=== PATIENT | female | born 1975 ===

== ENCOUNTER 2016-11-11 10:55 | Emergency (ER) | payer OTHER ==
[2016-11-11 11:32] VITALS: BMI 34.1
[2016-11-11] MEDS ORDERED: Albuterol-Ipratrop 3 mg / 0.5 (3 ml) UD ONE ×4 (11:41→13:31)
[2016-11-11] MEDS: Albuterol-Ipratrop 3 mg / 0.5 (3 ml) UD INH SCH (12:20)
--- NOTE | 2016-11-11 13:06 | C.PDOC ---
History Of Present Illness 41 y/o female presents to ED with complaints of productive cough, SOB and chest pain that increases with movement for x1 week. Symptoms began as nasal allergies and have worsen with time. Patient states she used son's nebulizer but no relief was noted. Patient denies N/V/D, fever or chills. No other complaints at this time. Time Seen by Provider: 11/11/16 12:09 Chief Complaint (Nursing): Shortness Of Breath History Per: Patient Onset/Duration Of Symptoms: Days Current Symptoms Are (Timing): Still Present Quality: Tightness Past Medical History Reviewed: Historical Data, Nursing Documentation, Vital Signs Vital Signs: Last Vital Signs Temp 98.7 F 11/11/16 14:06 Pulse 86 11/11/16 14:06 Resp 17 11/11/16 14:06 BP 110/74 11/11/16 14:06 Pulse Ox 94 L 11/11/16 14:29 - Medical History PMH: Bronchitis Family History: States: No Known Family Hx - Social History Hx Alcohol Use: Yes Hx Substance Use: No Review Of Systems Except As Marked, All Systems Reviewed And Found Negative. Constitutional: Negative for: Fever, Chills Cardiovascular: Positive for: Chest Pain Respiratory: Positive for: Cough, Shortness of Breath Gastrointestinal: Negative for: Nausea, Vomiting, Diarrhea Genitourinary: Negative for: Dysuria Skin: Negative for: Rash Neurological: Negative for: Weakness, Numbness Physical Exam - Physical Exam Appears: Non-toxic, No Acute Distress Skin: Normal Color, Warm, No Rash Head: Atraumatic, Normacephalic Eye(s): bilateral: Normal Inspection, PERRL Oral Mucosa: Moist Neck: Normal ROM, Supple Chest: Symmetrical Cardiovascular: Rhythm Regular, No Friction Rub, No Murmur Respiratory: No Rales, Rhonchi (Scattered Rhonchi ), Wheezing Gastrointestinal/Abdominal: Soft, No Tenderness, No Guarding, No Rebound Back: Normal Inspection, No CVA Tenderness Extremity: Normal ROM Neurological/Psych: Oriented x3, Normal Speech, Normal Cognition, Normal Motor Gait: Steady ED Course And Treatment - Laboratory Results Result Diagrams: 11/11/16 13:38 11/11/16 13:38 O2 Sat by Pulse Oximetry: 94 (Room air ) Pulse Ox Interpretation: Normal - Radiology CXR: Interpreted by Me CXR Interpretation: Yes: No Acute Disease. No: Infiltrates Medical Decision Making Medical Decision Making: On re-exam, the patient reports improvement of symptoms. Ambulatory in the ED with steady gait. Lungs are CTA, heart is RRR, abdomen is soft, non-tender and patient is tolerating PO well. Follow up with the medical doctor within 1-2 days , Return if worsened Disposition - Disposition Referrals: [facility] [Outside] Disposition: HOME/ ROUTINE Disposition Time: 14:25 Condition: GOOD Additional Instructions: Follow up with the medical doctor within 1-2 days without fail. Return if worsened. Prescriptions: Albuterol HFA [Ventolin HFA 90 mcg/actuation (8 g)] 1 puff IH QID PRN #1 inhaler PRN Reason: Shortness Of Breath Azithromycin [Zithromax] 250 mg PO DAILY #6 tab predniSONE [Prednisone] 20 mg PO BID #10 tab Promethazine/Phenyleph/Codeine [Pdtybchmdcqg-[id number]-Luvywoi Syrup] 5 ml PO TID PRN # 75 ml PRN Reason: Cough Spacer, Inhalation [Aerochamber] 1 inh IH QID #1 dev Instructions: Acute Bronchitis (ED) - Clinical Impression Clinical Impression: Acute bronchitis - PA / OUTPATIENT SURGERY RN / Resident Statement MD/DO has reviewed & agrees with the documentation as recorded. - Scribe Statement The provider has reviewed the documentation as recorded by the Duran Jerome All medical record entries made by the Duran were at my direction and personally dictated by me. I have reviewed the chart and agree that the record accurately reflects my personal performance of the history, physical exam, medical decision making, and the department course for this patient. I have also personally directed, reviewed, and agree with the discharge instructions and disposition.
[2016-11-11] MEDS ORDERED: MethylPREDNISolone 40 mg Vial IVP STA (13:13)
[2016-11-11] MEDS ORDERED: MethylPREDNISolone 40 mg Vial ONE (13:32)
[2016-11-11] MEDS: Albuterol-Ipratrop 3 mg / 0.5 (3 ml) UD IH SCH (13:35)
[2016-11-11 13:46] LABS: BASO # 0.2 K/uL (0.0-0.2); BASO % 1.5 % (0.0-2.0); EOS # 0.8 K/uL (0.0-0.7); EOS % 6.1 % (0.0-4.0); HEMATOCRIT 36.2 % (34.0-47.0); LYMPH # 2.3 K/uL (1.0-4.3); LYMPH % 17.9 % (20.0-40.0); MEAN CELL VOLUME 82.2 fL (81.0-99.0); MEAN CORPUSCULAR HEMOGLOBIN 26.6 pg (27.0-31.0); MEAN CORPUSCULAR HGB CONC 32.3 g/dL (33.0-37.0); MEAN PLATELET VOLUME 7.2 fL (7.2-11.7); MONO # 0.8 K/uL (0.0-0.8); MONO % 6.2 % (0.0-10.0); RED CELL DISTRIBUTION WIDTH 14.7 % (11.5-14.5); WHITE BLOOD COUNT 12.6 K/uL (4.8-10.8)
[2016-11-11 13:52] LABS: CHLORIDE 101 mmol/L (98-107); SODIUM 142 mmol/L (132-148)
[2016-11-11 13:53] LABS: POTASSIUM 3.7 mmol/L (3.6-5.2)
[2016-11-11 13:55] LABS: ALB/GLOB RATIO 1.5 (1.0-2.1); ALKALINE PHOSPHATASE 66 U/L (38-126); ALT/SGPT 29 U/L (9-52); AST/SGOT 31 U/L (14-36); BILIRUBIN,TOTAL 0.5 mg/dL (0.2-1.3); BLOOD UREA NITROGEN 12 mg/dL (7-17); CARBON DIOXIDE 27 mmol/L (22-30); GFR AFRICAN-AMERICAN > 60; GLUCOSE,RANDOM 90 mg/dL (65-105); TOTAL PROTEIN 8.6 g/dL (6.3-8.3)
[2016-11-11 13:56] LABS: CALCIUM 9.3 mg/dl (8.6-10.4)
[2016-11-11 14:08] VITALS: BP 110/74; PULSE 86; RESP 17; TEMP 98.7
[2016-11-11] MEDS ORDERED: guaiFENesin 100 mg/5 ml Syrup UD PO STA (14:09)
[2016-11-11] MEDS ORDERED: guaiFENesin 200 mg/10 ml Syrup UD ONE (14:14)
[2016-11-11 14:29] VITALS: O2SAT 94
--- NOTE | 2016-11-11 14:46 | RAD ---
HISTORY: SOB COMPARISON: None available. TECHNIQUE: Chest PA and lateral FINDINGS: Examination limited by habitus. LUNGS: No focal consolidation. Please note that chest x-ray has limited sensitivity for the detection of pulmonary masses. PLEURA: No significant pleural effusion identified. No definite pneumothorax . CARDIOVASCULAR: The cardiomediastinal silhouette appears within normal limits of size. OSSEOUS STRUCTURES: Mild degenerative changes. VISUALIZED UPPER ABDOMEN: Unremarkable. OTHER FINDINGS: None. IMPRESSION: No focal consolidation, significant pleural effusion, or definite pneumothorax identified.
== END 2016-11-11 14:55 | disposition home or self-care (01) ==
LOC: C.ER 10:55
DX: J20.9 Acute bronchitis, unspecified (principal)
CPT/HCPCS: 71020; 80053; 85025; 94640; 96374; 99285; J2920

== ENCOUNTER 2017-06-20 04:02 | Emergency (ER) | payer OTHER ==
[2017-06-20 04:04] VITALS: BMI 34.1
[2017-06-20] MEDS ORDERED: Sodium Chloride 0.9% 1,000 ML ONE (04:54)
[2017-06-20] MEDS ORDERED: Sodium Chloride 0.9% 1,000 ML IV STA (04:55)
[2017-06-20 05:15] LABS: BASO # 0.1 K/uL (0.0-0.2); BASO % 0.7 % (0.0-2.0); EOS # 0.6 K/uL (0.0-0.7); EOS % 8.6 % (0.0-4.0); LYMPH # 0.8 K/uL (1.0-4.3); LYMPH % 11.5 % (20.0-40.0); MEAN CELL VOLUME 75.3 fL (81.0-99.0); MEAN CORPUSCULAR HEMOGLOBIN 24.4 pg (27.0-31.0); MEAN CORPUSCULAR HGB CONC 32.4 g/dL (33.0-37.0); MONO # 0.5 K/uL (0.0-0.8); MONO % 6.8 % (0.0-10.0); NEUT % 72.4 % (50.0-75.0); RBC 4.09 Mil/uL (3.80-5.20); RED CELL DISTRIBUTION WIDTH 15.2 % (11.5-14.5); WHITE BLOOD COUNT 6.9 K/uL (4.8-10.8)
[2017-06-20 05:36] LABS: ALB/GLOB RATIO 1.1 (1.0-2.1); ALBUMIN 3.8 g/dL (3.5-5.0); ALT/SGPT 28 U/L (9-52); AST/SGOT 25 U/L (14-36); BLOOD UREA NITROGEN 9 mg/dL (7-17); CALCIUM 7.9 mg/dl (8.6-10.4); GFR AFRICAN-AMERICAN > 60; GFR NON-AFRICAN AMERICAN > 60; LIPASE 70 U/L (23-300)
[2017-06-20] MEDS ORDERED: Lactated Ringer's 1,000 ML IV STA (05:57)
[2017-06-20] MEDS ORDERED: Lactated Ringer's 1,000 ML ONE (06:05)
--- NOTE | 2017-06-20 06:20 | C.PDOC ---
History Of Present Illness 41 years old female with Hx of anemia presents to ED with complaints of not feeling well since yesterday. Associated symptoms; muscle aches, headache, cough , nausea/vomiting and feels weak. Patient denies fever. Patient states she was on "Iron pills" for her anemia but stopped using them. Time Seen by Provider: 06/20/17 04:35 Chief Complaint (Nursing): Headache History Per: Patient History/Exam Limitations: no limitations Onset/Duration Of Symptoms: Hrs Current Symptoms Are (Timing): Still Present Severity: Moderate Pain Scale Rating Of: 4 Recent travel outside of the [place]: No Past Medical History Reviewed: Historical Data, Nursing Documentation, Vital Signs Vital Signs: Last Vital Signs Temp 97.8 F 06/20/17 06:38 Pulse 81 06/20/17 06:38 Resp 20 06/20/17 06:38 BP 132/82 06/20/17 06:38 Pulse Ox 96 06/20/17 07:03 - Medical History PMH: Bronchitis Surgical History: No Surg Hx Family History: States: No Known Family Hx - Social History Hx Alcohol Use: Yes Hx Substance Use: No Review Of Systems Constitutional: Negative for: Fever, Chills Respiratory: Negative for: Cough Gastrointestinal: Negative for: Nausea, Vomiting Musculoskeletal: Positive for: Other (Muscle ache) Neurological: Positive for: Weakness, Headache Physical Exam - Physical Exam Appears: Non-toxic, Other (Awake and alert) Skin: Warm, Pale Head: Atraumatic, Normacephalic Eye(s): bilateral: Normal Inspection Oral Mucosa: Moist Throat: No Erythema, No Exudate Neck: Supple Chest: Symmetrical, No Tenderness Cardiovascular: Rhythm Regular Respiratory: No Rales, No Rhonchi, No Wheezing Gastrointestinal/Abdominal: Soft, No Tenderness Neurological/Psych: Oriented x3, Normal Speech, Normal Cognition ED Course And Treatment - Laboratory Results Result Diagrams: 06/20/17 05:13 06/20/17 05:13 O2 Sat by Pulse Oximetry: 96 (Room air ) Pulse Ox Interpretation: Normal Medical Decision Making Medical Decision Making: Administered Toradol, Zofran and Iv fluids. Ordered Urinalyis, blood work and Flu AB swab. Disposition - Disposition Disposition Time: 07:03 Condition: FAIR Forms: [facility] [facility] (Syrian) - Clinical Impression Clinical Impression: Viral syndrome - PA / EDUCATIONAL TECHNICIAN / Resident Statement MD/DO has reviewed & agrees with the documentation as recorded. - Scribe Statement The provider has reviewed the documentation as recorded by the Scribe Jermaine Murrieta All medical record entries made by the Scribe were at my direction and personally dictated by me. I have reviewed the chart and agree that the record accurately reflects my personal performance of the history, physical exam, medical decision making, and the department course for this patient. I have also personally directed, reviewed, and agree with the discharge instructions and disposition. Physician Patient Turnover Patient Signed Over To: Yue Camacho Handoff Comments: CXR pending, finish IVF, re-evaluate, dispo Decision To Admit - . Patient Diagnosis: Viral syndrome
[2017-06-20 06:55] LABS: SQUAMOUS EPITHIAL 2 /hpf (0-5); URINE BACTERIA RARE (<OCC); URINE BILIRUBIN NEGATIVE (NEGATIVE); URINE BLOOD 2+ (NEGATIVE); URINE CLARITY Clear (Clear); URINE COLOR Yellow (YELLOW); URINE GLUCOSE (UA) NORMAL (Normal); URINE LEUKOCYTE ESTERASE NEG Leu/uL (Negative); URINE NITRATE NEGATIVE (NEGATIVE); URINE PROTEIN NEGATIVE (NEGATIVE); URINE UROBILINOGEN NORMAL mg/dL (0.2-1.0)
[2017-06-20 06:58] LABS: HCG,QUALITATIVE URINE NEGATIVE (NEGATIVE)
[2017-06-20 09:02] VITALS: RESP 18; O2SAT 99
[2017-06-20 10:29] VITALS: BP 126/84; PULSE 81; TEMP 99
--- NOTE | 2017-06-20 17:16 | RAD ---
HISTORY: cough/nausea COMPARISON: Comparison is made with 11/11/2016 TECHNIQUE: Chest PA and lateral FINDINGS: LUNGS: No active pulmonary disease. PLEURA: No significant pleural effusion identified. No pneumothorax apparent. CARDIOVASCULAR: Normal. OSSEOUS STRUCTURES: No significant abnormalities. VISUALIZED UPPER ABDOMEN: Normal. OTHER FINDINGS: None. IMPRESSION: No active disease.
== END 2017-06-20 10:29 | disposition home or self-care (01) ==
LOC: C.ER 04:02
DX: B34.9 Viral infection, unspecified (principal)
CPT/HCPCS: 71046; 80053; 81001; 82550; 83690; 84703; 85025; 87804; 96361; 96374; 96375; 96376; 99285; J1885; J2405; J7040; J7120